=== PATIENT | female | born 1985 | race Caucasian/White ===

== ENCOUNTER 2016-10-09 15:29 | Emergency (ER) | payer OTHER ==
[~2016-10-09] VITALS: Ht 162.6 cm; Wt 92.0 kg
[~2016-10-09 15:29] MED LIST: PHEN37.53 PO
[2016-10-09 16:07] LABS: HEMATOCRIT 37.2 % (34.6-47.8); HEMOGLOBIN 12.6 g/dL (11.7-16.4); WHITE BLOOD COUNT 14.2 x10^3/uL (3.4-10)
[2016-10-09 16:20] LABS: ASPARTATE AMINO TRANSFERASE 15 U/L (15-37); BLOOD UREA NITROGEN 13 mg/dL (7-18)
[2016-10-09] MEDS ORDERED: MAALOX/HYOSCYAMINE/LIDOCAINE 45 ML BTL PO ONE (16:30)
[2016-10-09] MEDS ORDERED: FAMOTIDINE 20 MG TABLET PO ONE (16:30)
[2016-10-09] MEDS ORDERED: ONDANSETRON ODT 4 MG ONE (16:35)
[2016-10-09] MEDS ORDERED: FAMOTIDINE 20 MG TABLET ONE (16:35)
[2016-10-09] MEDS ORDERED: MAALOX/HYOSCYAMINE/LIDOCAINE 45 ML BTL ONE (16:35)
[2016-10-09 16:49] VITALS: BP 115/78
[2016-10-09] MEDS ORDERED: SODIUM CHLORIDE FLUSH 10ML SYR IVF ONE (17:00)
[2016-10-09] MEDS ORDERED: POTASSIUM CHLORIDE 20 MEQ TAB.ER.PRT PO ONE (17:00)
[2016-10-09] MEDS ORDERED: SODIUM CHLORIDE 0.9% 1,000ML IVBOLUS ONE (17:00)
[2016-10-09] MEDS ORDERED: ONDANSETRON 2MG/ML, 2ML IVPush ONE (17:00)
[2016-10-09] MEDS ORDERED: ONDANSETRON ODT 4 MG PO ONE (17:00)
[2016-10-09] MEDS ORDERED: POTASSIUM CHLORIDE 20 MEQ TAB.ER.PRT ONE (17:05)
== END 2016-10-09 17:46 | disposition home or self-care (01) ==
LOC: ED 17:41
DX: K29.20 Alcoholic gastritis without bleeding (principal); K29.00 Acute gastritis without bleeding
CPT/HCPCS: 36415; 76700; 80053; 83690; 84703; 85025; 85610; 99285; Q0162

== ENCOUNTER 2017-08-06 16:52 | Emergency (ER) | payer SELFPAY ==
[~2017-08-06] VITALS: Ht 162.6 cm; Wt 100.2 kg
[2017-08-06] MEDS ORDERED: METHOCARBAMOL 750 MG TABLET ONE (18:09)
[2017-08-06] MEDS ORDERED: KETOROLAC 30 MG/1 ML ONE (18:09)
[2017-08-06] MEDS ORDERED: HYDROmorphone 2 MG/ML, 1ML ONE (18:09)
[2017-08-06] MEDS ORDERED: ONDANSETRON ODT 4 MG ONE (18:09)
[2017-08-06] MEDS ORDERED: KETOROLAC 30 MG/1 ML IM ONE (18:30)
[2017-08-06] MEDS ORDERED: METHOCARBAMOL 750 MG TABLET PO ONE (18:30)
[2017-08-06] MEDS ORDERED: ONDANSETRON ODT 4 MG PO ONE (18:30)
[2017-08-06] MEDS ORDERED: HYDROmorphone 1 MG/ML, 1ML IM ONE (18:30)
[2017-08-06 19:49] VITALS: BP 122/82
== END 2017-08-06 19:50 | disposition home or self-care (01) ==
LOC: ED 18:00
DX: S39.012A Strain of muscle, fascia and tendon of lower back, initial encounter (principal); X58.XXXA Exposure to other specified factors, initial encounter; Y93.89 Activity, other specified; Y92.89 Other specified places as the place of occurrence of the external cause; Y99.8 Other external cause status
CPT/HCPCS: 72110; 99284